=== PATIENT | male | born 1980 | race Caucasian/White ===

== ENCOUNTER 2017-10-27 10:15 | Outpatient (CLI) | payer SELFPAY ==
[~2017-10-27] VITALS: Ht 182.9 cm; Wt 68.0 kg
[2017-10-27] MEDS ORDERED: MULT1TAB69 PO (10:31)
[2017-10-27] MEDS ORDERED: RT-ALBUINH IH (10:31)
[2017-10-27] MEDS ORDERED: TERB250T16 PO (10:31)
== END 2017-10-27 10:46 ==
LOC: PREOP 10:15
PROVIDERS: ATTEND Specialist
DX: Z01.818 Encounter for other preprocedural examination (principal); D16.5 Benign neoplasm of lower jaw bone

== ENCOUNTER 2017-11-07 13:14 | Day surgery (SDC) | payer OTHER ==
[~2017-11-07] VITALS: Ht 182.9 cm; Wt 66.9 kg
[~2017-11-07 13:14] MED LIST: MULT1TAB69 PO; RT-ALBUINH IH; TERB250T16 PO
[2017-11-07 13:15] VITALS: BP 120/78
--- OUTSIDE RECORDS SUMMARY | 2017-11-07 13:18 | XMS REPORT ---
Author Author BARBIE GILLIAM Organization [facility] Address [address] [place] [address] Care Team Providers Care Boat Person Name Role Phone BARBIE GILLIAM Unavailable PROBLEMS Unknown Problems ALLERGIES No Information ENCOUNTERS Encounter Location Date Diagnosis [facility] [address] [address] Jun, [facility] [address] [address] Apr, [facility] [address] [address] Apr, [facility] [address] [address] Mar, [facility] [address] [place] [id number] Mar, Malingering Z76.5 [facility] [address] [address] Mar, [facility] [id number] [address] Mar, Unexplained weight loss R63.4 [facility] [address] [place] [id number] Mar, Unexplained weight loss R63.4 [address] [place] [id number] Mar, Onychomycosis B35.1 IMMUNIZATIONS No Known Immunizations SOCIAL HISTORY Never Assessed REASON FOR VISIT Retirement patient, weight check CBrumbackRN PLAN OF CARE VITAL SIGNS MEDICATIONS Unknown Medications RESULTS No Results PROCEDURES No Known procedures INSTRUCTIONS MEDICATIONS ADMINISTERED No Known Medications
--- OUTSIDE RECORDS SUMMARY | 2017-11-07 13:18 | XMS REPORT ---
Author Author BARBIE GILLIAM Organization [facility] Address [address] [place] [address] Care Team Providers Care Patient Safety Manager Name Role Phone BARBIE GILLIAM Unavailable PROBLEMS Unknown Problems ALLERGIES No Information ENCOUNTERS Encounter Location Date Diagnosis [facility] [address], [place] [address] Jun, [facility] [id number] [place] [address] Apr, [facility] [id number] [place] [address] Apr, [facility] [id number] [place] [address] Mar, [facility] [address] [place] [id number] Mar, Malingering Z76.5 [facility] [address] [place] [address] Mar, [facility] [address], [place] [address] Mar, Unexplained weight loss R63.4 [facility] [address] [place] [id number] Mar, Unexplained weight loss R63.4 [address] [place] [id number] Mar, Onychomycosis B35.1 IMMUNIZATIONS No Known Immunizations SOCIAL HISTORY Never Assessed REASON FOR VISIT Weight check CBrumbackRN PLAN OF CARE VITAL SIGNS Weight 172.5 lbs 2017-04-22 Heart Rate 84 bpm 2017-04-22 Respiratory Rate 18 2017-04-22 Blood pressure systolic 156 mmHg 2017-04-22 Blood pressure diastolic 84 mmHg 2017-04-22 MEDICATIONS Medication Instructions Dosage Frequency Start Date End Date Duration Status Albuterol Sulfate HFA 108 (90 Base) MCG/ACT Inhalation every 4 hours as needed 2 puffs as needed Mar, Active Lamisil 250 MG Orally Once a day 1 tablet 24h Mar, May, 60 days Not-Taking Ibuprofen 600 MG Orally 2 times a day 1 tablet with food or milk as needed 12h Mar, Active Multivitamin - Orally Once a day 1 tablet 24h Mar, 14 days Active RESULTS No Results PROCEDURES No Known procedures INSTRUCTIONS MEDICATIONS ADMINISTERED No Known Medications
--- OUTSIDE RECORDS SUMMARY | 2017-11-07 13:18 | XMS REPORT ---
Author Author BARBIE GILLIAM Organization [facility] Address [address] [place] [address] Care Team Providers Care Fruit And Vegetable Classer Name Role Phone BARBIE GILLIAM Unavailable PROBLEMS Unknown Problems ALLERGIES No Known Allergies ENCOUNTERS Encounter Location Date Diagnosis [facility] [id number] [place] [address] Jun, [facility] [id number] [place] [address] Apr, [facility] [id number] [place] [address] Apr, [facility] [address] [place] [address] Mar, [facility] [address] [place] [phone] Mar, Malingering Z76.5 [facility] [address] [place] [address] Mar, [facility] [address] [address] Mar, Unexplained weight loss R63.4 [facility] [address] [place] [id number] Mar, Unexplained weight loss R63.4 [address] [place] [id number] Mar, Onychomycosis B35.1 IMMUNIZATIONS No Known Immunizations SOCIAL HISTORY Never Assessed REASON FOR VISIT PENITENTIARY PLAN OF CARE VITAL SIGNS Height 73 in 2017-04-15 Weight 175 lbs 2017-04-15 Heart Rate 84 bpm 2017-04-15 Respiratory Rate 16 2017-04-15 BMI 23.09 kg/m2 2017-04-15 Blood pressure systolic 134 mmHg 2017-04-15 Blood pressure diastolic 84 mmHg 2017-04-15 MEDICATIONS Unknown Medications RESULTS No Results PROCEDURES No Known procedures INSTRUCTIONS MEDICATIONS ADMINISTERED No Known Medications
--- OUTSIDE RECORDS SUMMARY | 2017-11-07 13:18 | XMS REPORT ---
Author Author BARBIE GILLIAM Organization [facility] Address [address] [place] [address] Care Team Providers Care Domestic Technician Name Role Phone BARBIE GILLIAM Unavailable PROBLEMS Unknown Problems ALLERGIES No Information ENCOUNTERS Encounter Location Date Diagnosis [facility] [id number], [place] [address] Jun, [facility] [id number], [place] [address] Apr, [facility] [id number] [address] Apr, [facility] [id number] [address] Mar, [facility] [address] [place] [id number] Mar, Malingering Z76.5 [facility] [id number] [address] Mar, [facility] [id number] [address] Mar, Unexplained weight loss R63.4 [address] [place] [id number] Mar, Unexplained weight loss R63.4 [address] [place] [id number] Mar, Onychomycosis B35.1 IMMUNIZATIONS No Known Immunizations SOCIAL HISTORY Never Assessed REASON FOR VISIT medical noncompliance PLAN OF CARE VITAL SIGNS MEDICATIONS Unknown Medications RESULTS No Results PROCEDURES No Known procedures INSTRUCTIONS MEDICATIONS ADMINISTERED No Known Medications
--- OUTSIDE RECORDS SUMMARY | 2017-11-07 13:18 | XMS REPORT ---
Author Author BARBIE GILLIAM Organization [facility] Address [address] [place] [address] Care Team Providers Care Contribution Solicitor Name Role Phone BARBIE GILLIAM Unavailable PROBLEMS Unknown Problems ALLERGIES No Information ENCOUNTERS Encounter Location Date Diagnosis [facility] [address], [place] [address] Jun, [facility] [address], [place] [address] Apr, [facility] [address], [place] [address] Apr, [facility] [address], [place] [address] Mar, [facility] [address] [place] [place] [id number] Mar, Malingering Z76.5 [facility] [address], [place] [address] Mar, [facility] [id number], [place] [address] Mar, Unexplained weight loss R63.4 [facility] [address] [place] [phone] Mar, Unexplained weight loss R63.4 [address] [place] [place] [phone] Mar, Onychomycosis B35.1 IMMUNIZATIONS No Known Immunizations SOCIAL HISTORY Never Assessed REASON FOR VISIT Requests return call PLAN OF CARE VITAL SIGNS MEDICATIONS Unknown Medications RESULTS No Results PROCEDURES No Known procedures INSTRUCTIONS MEDICATIONS ADMINISTERED No Known Medications
--- OUTSIDE RECORDS SUMMARY | 2017-11-07 13:18 | XMS REPORT ---
Author Author BARBIE GILLIAM Organization [facility] Address [address] [place] [address] Care Team Providers Care Overhead Distribution Engineer Name Role Phone BARBIE GILLIAM Unavailable PROBLEMS Unknown Problems ALLERGIES No Known Allergies ENCOUNTERS Encounter Location Date Diagnosis [facility] [address], [place] [address] Jun, [facility] [id number] [place] [address] Apr, [facility] [id number] [place] [address]- [address] Apr, [facility] [address] [place] [address] Mar, [facility] [address] [place] [id number] Mar, Malingering Z76.5 [facility] [address] [place] [address] Mar, [facility] [address], [place] [address] Mar, Unexplained weight loss R63.4 [facility] [address] [place] [phone] Mar, Unexplained weight loss R63.4 [address] [place] [phone] Mar, Onychomycosis B35.1 IMMUNIZATIONS No Known Immunizations SOCIAL HISTORY Never Assessed REASON FOR VISIT PLAN OF CARE VITAL SIGNS Height 73 in 2017-03-25 Weight 181 lbs 2017-03-25 Heart Rate 72 bpm 2017-03-25 Respiratory Rate 16 2017-03-25 BMI 23.88 kg/m2 2017-03-25 Blood pressure systolic 134 mmHg 2017-03-25 Blood pressure diastolic 80 mmHg 2017-03-25 MEDICATIONS Medication Instructions Dosage Frequency Start Date End Date Duration Status Lamisil 250 MG Orally Once a day 1 tablet 24h Mar, May, 60 days Active Ibuprofen 600 MG Orally 2 times a day 1 tablet with food or milk as needed 12h Mar, Active Albuterol Sulfate HFA 108 (90 Base) MCG/ACT Inhalation every 4 hours as needed 2 puffs as needed Mar, Active Multivitamin - Orally Once a day 1 tablet 24h Mar, 14 days Active Tums 500 mg Orally twice a day 2 tablets 12h Mar, Mar, 14 days Active RESULTS No Results PROCEDURES No Known procedures INSTRUCTIONS MEDICATIONS ADMINISTERED No Known Medications
--- OUTSIDE RECORDS SUMMARY | 2017-11-07 13:18 | XMS REPORT ---
Author Author BARBIE GILLIAM Organization [facility] Address [address] [place] [address] Care Team Providers Care Head Custodian Name Role Phone BARBIE GILLIAM Unavailable PROBLEMS Unknown Problems ALLERGIES No Information ENCOUNTERS Encounter Location Date Diagnosis [facility] [address], [place] [address] Jun, [facility] [address] [place] [address] Apr, [facility] [id number] [place] [address] Apr, [facility] [id number] [place] [address] Mar, [facility] [address] [place] [id number] Mar, Malingering Z76.5 [facility] [address] [place] [address] Mar, [facility] [address], [place] [address] Mar, Unexplained weight loss R63.4 [facility] [address] [place], [place] [id number] Mar, Unexplained weight loss R63.4 [address] [place] [place] [id number] Mar, Onychomycosis B35.1 IMMUNIZATIONS No Known Immunizations SOCIAL HISTORY Never Assessed REASON FOR VISIT [facility] PLAN OF CARE VITAL SIGNS Height 73 in 2017-04-01 Weight 175 lbs 2017-04-01 Heart Rate 88 bpm 2017-04-01 Respiratory Rate 16 2017-04-01 BMI 23.09 kg/m2 2017-04-01 Blood pressure systolic 134 mmHg 2017-04-01 Blood pressure diastolic 84 mmHg 2017-04-01 MEDICATIONS Unknown Medications RESULTS No Results PROCEDURES Procedure Date Ordered Result Body Site ROUTINE VENIPUNCTURE 2017-04-01 N/A COMPREHEN METABOLIC PANEL Apr 01, 2017 COMPLETE CBC W/AUTO DIFF WBC Apr 01, 2017 ASSAY THYROID STIM HORMONE Apr 01, 2017 INSTRUCTIONS MEDICATIONS ADMINISTERED No Known Medications
--- OUTSIDE RECORDS SUMMARY | 2017-11-07 13:18 | XMS REPORT ---
Author Author BARBIE GLILIAM Organization [facility] Address [address] [place] [address] Care Team Providers Care Out Patient Therapist Name Role Phone BARBIE GILLIAM Unavailable PROBLEMS Unknown Problems ALLERGIES No Information ENCOUNTERS Encounter Location Date Diagnosis [facility] [address], [place] [address] Jun, [facility] [address] [address] Apr, [facility] [address], [place] [address] Apr, [facility] [address] [address] Mar, [facility] [address] [place] [id number] Mar, Malingering Z76.5 [facility] [address] [address] Mar, [facility] [address], [place] [address] Mar, Unexplained weight loss R63.4 [facility] [address] [place] [phone] Mar, Unexplained weight loss R63.4 [address] [place] [phone] Mar, Onychomycosis B35.1 IMMUNIZATIONS No Known Immunizations SOCIAL HISTORY Never Assessed REASON FOR VISIT Weight check CBrumbackRN PLAN OF CARE VITAL SIGNS Height 73 in 2017-05-06 Weight 172.3 lbs 2017-05-06 BMI 22.73 kg/m2 2017-05-06 MEDICATIONS Unknown Medications RESULTS No Results PROCEDURES No Known procedures INSTRUCTIONS MEDICATIONS ADMINISTERED No Known Medications
[2017-11-07] MEDS ORDERED: LACTATED RINGERS 1,000 ML IV PRN (13:25)
[2017-11-07] MEDS ORDERED: ceFAZolin 2 GM IV Premixed 50 ML IV ONE (13:30)
[2017-11-07] MEDS ORDERED: ROCURONIUM 10 MG/ML 5 ML SYRINGE IV ONE (13:33)
[2017-11-07] MEDS ORDERED: ONDANSETRON 4 MG/2 ML (SDV) Z0FRAN ONE ×2 (13:33→16:24)
[2017-11-07] MEDS ORDERED: DEXAMETHASONE 10 MG/ML (DECADRON) 1 ML VIAL ONE (13:33)
[2017-11-07] MEDS ORDERED: MIDAZOLAM 2 MG/2 ML (VERSED) VIAL ONE (13:33)
[2017-11-07] MEDS ORDERED: proPOfol 200 MG/20 ML (DIPRIVAN) VIAL IV ONE (13:33)
[2017-11-07] MEDS ORDERED: fentaNYL INJECTION 100 MCG/2 ML AMP ONE (13:33)
[2017-11-07] MEDS ORDERED: LIDOCAINE PF 2% 5 ML (XYLOCAINE) VIAL ONE (13:33)
[2017-11-07] MEDS ORDERED: FAMOTIDINE 20MG/2ML IV (PEPCID) ONE (13:49)
[2017-11-07] MEDS ORDERED: FAMOTIDINE 20MG/2ML IV (PEPCID) IV ONE (14:00)
[2017-11-07] MEDS ORDERED: LIDOCAINE/EPI 2% 1:100,00 (XYLOCAINE) 20 ML VIAL ONE (14:04)
--- NOTE | 2017-11-07 16:19 | Progress Note-Pre Operative ---
Pre-Operative Progress Note H&P Reviewed The H&P was reviewed, patient examined and no changes noted. Date Seen by Provider: Nov 07, 2017 Time Seen by Provider: 15:00 Date H&P Reviewed: Nov 07, 2017 Time H&P Reviewed: 15:05 Pre-Operative Diagnosis: peripheral ossifying fibroma LC ANDREWS DDS Nov 07, 2017 4:19 pm
[2017-11-07] MEDS ORDERED: morphine INJ 10 MG/ML 1ML (SYR OR VIAL) ONE (16:23)
[2017-11-07] MEDS ORDERED: KETOROLAC 30 MG/ML VIAL ONE (16:23)
[2017-11-07] MEDS ORDERED: HYDROmorphone 1 MG/ML (DILAUDID) 1 ML SYRINGE ONE (16:24)
[2017-11-07] MEDS ORDERED: DEXAMETHASONE 4 MG/ML SDV (DECADRON) ONE (16:25)
[2017-11-07] MEDS ORDERED: DEXAMETHASONE 4 MG/ML SDV (DECADRON) IV SCH (16:30)
[2017-11-07] MEDS ORDERED: HYDROmorphone 1 MG/ML (DILAUDID) 1 ML SYRINGE IV PRN ×2 (16:30→17:45)
[2017-11-07] MEDS ORDERED: HYDROcodone/APAP 7.5MG-325 MG/15 ML (LORTAB) UDC PO PRN (16:30)
[2017-11-07] MEDS ORDERED: MEPERIDINE (DEMEROL) INJ 50 MG/ML ONE (16:31)
[2017-11-07] MEDS ORDERED: SEVOFLURANE (ULTANE) 15 ML INHAL SOLN ONE ×5 (16:52→17:42)
[2017-11-07] MEDS ORDERED: PHENYLEPHRINE 100 MCG/ML 10 ML (ANESTHESIA) SYR ONE (17:35)
[2017-11-07] MEDS ORDERED: GLYCOPYRROLATE 0.2 MG/ML (ROBINUL) 2 ML VIAL ONE (17:37)
[2017-11-07] MEDS ORDERED: NEOSTIGMINE 1 MG/ML 5 ML SYRINGE ONE (17:37)
[2017-11-07] MEDS ORDERED: morphine INJ 10 MG/ML 1ML (SYR OR VIAL) IVP PRN (17:45)
[2017-11-07] MEDS ORDERED: ONDANSETRON 4 MG/2 ML (SDV) Z0FRAN IVP PRN (17:45)
[2017-11-07] MEDS ORDERED: MEPERIDINE (DEMEROL) INJ 50 MG/ML IVP PRN (17:45)
[2017-11-07 18:30] VITALS: BP 133/91
[2017-11-07] MEDS ORDERED: CEPH-507 PO (18:33)
[2017-11-07] MEDS ORDERED: IBUP-1780 PO (18:33)
[2017-11-07 19:00] VITALS: BP 135/91
[2017-11-07 19:30] VITALS: BP 133/90
[2017-11-07 19:50] VITALS: BP 120/78
[2017-11-07] MEDS ORDERED: ceFAZolin INJECTION 1,000 MG in NS (IVPB) 50 ML IV SCH (22:00)
--- NOTE | 2017-11-26 19:52 | OPERATIVE REPORT ---
DATE OF SERVICE: 11/07/2017 SERVICE: physician assistant surgery. PREOPERATIVE DIAGNOSIS: Ossifying fibroma of anterior mandibular ridge. POSTOPERATIVE DIAGNOSIS: Ossifying fibroma of anterior mandibular ridge. PROCEDURE: Removal with frozen section of ossifying fibroma. SURGEON: Lc Andrews DDS SUPERVISOR GRAPHITE: Edna Sandhu. COMPLICATIONS: There were no complications. ESTIMATED BLOOD LOSS: Minimal. FLUIDS: 1000 mL of crystalloid. COUNTS: Instrument, needle and sponge count were correct x2. HISTORY OF PRESENT ILLNESS AND INDICATIONS FOR PROCEDURE: The patient is a 36-year-old otherwise healthy white male, who has maintained a [facility] [employer]. He states he had a mass that has been growing into the anterior mandible on the superior aspect displacing his teeth. We performed a biopsy in the office, it was returned as an ossifying fibroma. I spoke extensively with the patient and the corrections officers, it was determined that he would best be served by having this removed as an outpatient at [facility] and he was scheduled for surgery at the earliest operating time. DESCRIPTION OF PROCEDURE: The patient was then taken to the operating room and placed on the operating room table with appropriate monitors were placed and anesthesia was induced via nasotracheal intubation. After this was secured, the surgeon left the room, scrubbed, returned, donned, sterile gowns and gloves and then prepped and draped the patient in the usual standard sterile fashion. After this, we deposited local anesthesia in an infiltrated manner around the anterior mandible. This allowed to take effect and then used a 15 blade to make a full thickness incision down to and including the periosteum. This was elevated and removed around the anterior superior border as well as the lingual border of the mandible. This was then tagged and sent for frozen section that was returned that it was indeed an ossifying fibroma. I advised the patient preoperatively that he may end up needing to have one of his anteriors removed; however, he stated he did not want any teeth removed. I advised him that this increase potential for recurrence, but he was insistent that he did not want any teeth removed. Subsequently, irrigated with normal saline and then closed with 3-0 chromic gut in an interrupted and running fashion. He was then allowed to emerge from his general anesthetic. He was breathing spontaneously and then he was extubated in the operating room and then transported to the recovery room assessed to have stable vital signs, breathing spontaneously with the pulse ox 99%. Job ID: [id number] DocumentID: [id number] Dictated Date: 11/26/2017 12:40:58 Cuff Cutter Date: 11/26/2017 19:51:47 Dictated By: LC ANDREWS DDS
== END 2017-11-07 19:50 ==
LOC: SDC 13:14
PROVIDERS: ATTEND Specialist
DX: D16.5 Benign neoplasm of lower jaw bone (principal); J45.909 Unspecified asthma, uncomplicated; Z87.891 Personal history of nicotine dependence
CPT/HCPCS: 87081

== ENCOUNTER 2020-03-17 05:32 | Outpatient (RCR) | payer OTHER ==
[~2020-03-17 05:32] MED LIST changes: +CEPH-507 PO; +IBUP-1780 PO; +MULT-567 PO; -MULT1TAB69 PO
--- NOTE | 2020-03-20 11:10 | Progress Note-Post Operative ---
Post-Operative Progess Note Surgeon (s)/Telecasting Engineer (s) Surgeon LC ANDREWS DDS Telecasting Engineer: janet ceja Pre-Operative Diagnosis peripheral ossifying fibroma Post-Operative Diagnosis same Procedure & Operative Findings Date of Procedure 03/20/20 Procedure Performed/Findings removal of fibroma with frozen section Anesthesia Type geta Estimated Blood Loss Estimated blood loss (mL): minimal Specimens/Packing Specimens Removed frozen section Packing: none LC ANDREWS DDS Mar 20, 2020 11:10
== END 2020-03-17 10:16 | disposition home or self-care (01) ==
LOC: PREOP 05:32
PROVIDERS: ATTEND Specialist
DX: Z01.812 Encounter for preprocedural laboratory examination (principal); D16.9 Benign neoplasm of bone and articular cartilage, unspecified; Z20.828 Contact with and (suspected) exposure to other viral communicable diseases
CPT/HCPCS: 87635

== ENCOUNTER 2020-03-20 08:30 | Day surgery (SDC) | payer OTHER ==
[2020-03-20] VITALS (10 sets, daily range): BP systolic 108–137; BP diastolic 59–84
[~2020-03-20] VITALS: Ht 185.5 cm; Wt 78.6 kg
[2020-03-20] MEDS: LACTATED RINGERS 1,000 ML IV PRN ×2 (08:54→10:50)
[2020-03-20] MEDS ORDERED: BUPR100T7 PO (09:00)
[2020-03-20] MEDS ORDERED: ROPIVACAINE 5MG/ML 30ML VIAL ONE (09:09)
[2020-03-20] MEDS ORDERED: LIDOCAINE/EPI 2% 1:100,00 (XYLOCAINE) 20 ML VIAL ONE (09:09)
[2020-03-20] MEDS ORDERED: MIDAZOLAM 2 MG/2 ML (VERSED) VIAL ONE (09:31)
[2020-03-20] MEDS ORDERED: fentaNYL INJECTION 100 MCG/2 ML AMP ONE (09:31)
[2020-03-20] MEDS: ceFAZolin 2 GM IV Premixed 50 ML ONE (10:05)
[2020-03-20] MEDS: ceFAZolin INJECTION 1,000 MG in WATER (STERILE) FOR INJECTION 10 ML IV SCH (10:05)
--- NOTE | 2020-03-20 10:09 | Progress Note-Pre Operative ---
Pre-Operative Progress Note H&P Reviewed The H&P was reviewed, patient examined and no changes noted. Date Seen by Provider: Mar 20, 2020 Time Seen by Provider: : Date H&P Reviewed: Mar 20, 2020 Time H&P Reviewed: : Pre-Operative Diagnosis: peripheral ossifying fibroma LC ANDREWS DDS Mar 20, 2020 10:09
[2020-03-20] MEDS ORDERED: HYDROcodone/APAP 7.5MG-325 MG/15 ML (LORTAB) UDC PO PRN (10:15)
[2020-03-20] MEDS ORDERED: ONDANSETRON 4 MG/2 ML (SDV) Z0FRAN IVP PRN (11:30)
[2020-03-20] MEDS ORDERED: morphine INJ 10 MG/ML 1ML (SYR OR VIAL) IVP ONE (11:30)
--- NOTE | 2020-03-20 11:38 | Anesthesia-General Post-Op ---
General Patient Condition Mental Status/LOC: Same as Preop Cardiovascular: Satisfactory Nausea/Vomiting: Absent Respiratory: Satisfactory Pain: Controlled Complications: Absent Post Op Complications Complications None Follow Up Care/Instructions Patient Instructions None needed. Anesthesia/Patient Condition Patient Condition Patient is doing well, no complaints, stable vital signs, no apparent adverse anesthesia problems. No complications reported per nursing. ABIGAIL WELLS CRNA Mar 20, 2020 11:38
[2020-03-20] MEDS ORDERED: IBUP-1780 PO (11:55)
[2020-03-20] MEDS ORDERED: AMOX500T2 PO (11:55)
[2020-03-20] MEDS ORDERED: HYDROcodone/APAP 5 MG/325 MG (LORTAB) TAB ONE (12:13)
[2020-03-20] MEDS ORDERED: HYDROcodone/APAP 5 MG/325 MG (LORTAB) TAB PO ONE (12:15)
--- NOTE | 2020-04-05 22:21 | OPERATIVE REPORT ---
DATE OF SERVICE: 03/20/2020 SERVICE: Oral maxillofacial surgery. SURGEON: Dr. Lc Andrews. PEARL DIVER: Edna . COMPLICATIONS: There were no complications. BLOOD LOSS: Minimal. FLUIDS: 1100 mL of crystalloid. COUNTS: Instrument, needle and sponge count were correct x2. HISTORY OF PRESENT ILLNESS AND INDICATIONS FOR PROCEDURE: The patient is a 39-year-old white male, who is currently incarcerated at the [facility]. Approximately two years ago, we have removed the peripheral ossifying fibroma from in and around teeth numbers 24 and 25. This was sent for frozen section and permanent were approximately in late January, middle of January. He presented with what appears to be a recurrence. I spoke at length with him and advised him this is almost certainly a reactive lesion from not having his teeth properly cleaned and scaled and back in 2018. We advised him that he have this procedure performed; however, to the best of my knowledge, he has not had it done. Subsequently, we decided to make sure that this was not a more invasive lesion. Subsequently, he was scheduled for surgery at the time. DESCRIPTION OF PROCEDURE: The patient was taken to the operating room and placed on the operating table with appropriate monitors placed and anesthesia was induced via orotracheal intubation without difficulty. Once this was secured, the surgeon left the room, scrubbed, returned, donned sterile gowns and gloves and prepped and draped the patient in the usual standard and sterile fashion. After this, we deposited local anesthesia in and around the area of the anterior mandible both along the facial and lingual side. This allowed to take effect and then used a #15 blade to excise in around the lesion, which was approximately 4 to 5 mm x 1 cm and then we performed an elevation with a periosteal elevator and removed the lesion as well as the submucosal tissue and the periosteum. This was sent for a frozen section. It was determined that it was indeed a peripheral ossifying fibroma. After this, we made sure we had adequate hemostasis and we placed a throat pack, was removed and then this completed our procedure. He was then allowed to emerge from his general anesthetic until he was breathing spontaneously and then transported to the recovery room where he was assessed to have stable vital signs, breathing spontaneously with pulse ox of 99%. Job ID: [id number] DocumentID: [id number] Dictated Date: 04/05/2020 15:00:17 Retail Field Merchandiser Date: 04/05/2020 22:20:54 Dictated By: LC ANDREWS DDS
== END 2020-03-20 13:10 | disposition home or self-care (01) ==
LOC: SDC 08:30
PROVIDERS: ATTEND Specialist
DX: D16.4 Benign neoplasm of bones of skull and face (principal); J45.909 Unspecified asthma, uncomplicated
CPT/HCPCS: 87081; 88305; 88307; 88331